=== PATIENT | female | born 1990 | race Caucasian/White ===

== ENCOUNTER 2016-12-16 13:49 | Emergency (ER) | payer OTHER ==
[~2016-12-16] VITALS: Ht 170.2 cm; Wt 111.1 kg
--- NOTE | 2016-12-16 13:55 | NUR ---
PATIENT TO OF1 AT THIS TIME.
[2016-12-16 13:57] VITALS: BP 167/81
--- NOTE | 2016-12-16 14:20 | NUR ---
Patient being evaluated by Dr. Mccollum
[2016-12-16] MEDS ORDERED: IBUPROFEN 600 MG TAB PO ONE (14:40)
[2016-12-16 15:23] VITALS: BP 167/81
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
--- NOTE | 2016-12-16 15:25 | NUR ---
Patient discharged with v/s stable. Written and verbal after care instructions given and explained. Patient alert, oriented and verbalized understanding of instructions. Ambulatory with steady gait. All questions addressed prior to discharge. ID band removed. Patient advised to follow up with PMD. Rx of NORCO AND MOTRIN given. Patient educated on indication of medication including possible reaction and side effects. Opportunity to ask questions provided and answered.
== END 2016-12-16 15:25 | disposition home or self-care (01) ==
LOC: MED 13:49
DX: S90.01XA Contusion of right ankle, initial encounter (principal); V87.8XXA Person injured in other specified noncollision transport accidents involving motor vehicle (traffic), initial encounter; Y93.89 Activity, other specified; Y92.89 Other specified places as the place of occurrence of the external cause; Y99.8 Other external cause status

== ENCOUNTER 2017-11-16 11:22 | Emergency (ER) | payer OTHER ==
[~2017-11-16] VITALS: Ht 170.2 cm; Wt 107.5 kg
[2017-11-16 11:36] VITALS: BP 136/70
--- NOTE | 2017-11-16 11:45 | NUR ---
PT AMBULATED TO [facility].
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
[2017-11-16 12:37] VITALS: BP 133/71
--- NOTE | 2017-11-16 12:37 | NUR ---
Patient discharged with v/s stable. Written and verbal after care instructions given and explained. Patient alert, oriented and verbalized understanding of instructions. Ambulatory with steady gait. All questions addressed prior to discharge. ID band removed. Patient advised to follow up with PMD. Rx of NEOSPORIN CREAM given. Patient educated on indication of medication including possible reaction and side effects. Opportunity to ask questions provided and answered.
== END 2017-11-16 12:37 | disposition home or self-care (01) ==
LOC: MED 11:22
DX: Z77.098 Contact with and (suspected) exposure to other hazardous, chiefly nonmedicinal, chemicals (principal); R51 Headache
CPT/HCPCS: 99283

== ENCOUNTER 2017-12-13 16:05 | Emergency (ER) | payer OTHER ==
[~2017-12-13] VITALS: Ht 170.2 cm; Wt 107.5 kg
[2017-12-13 16:06] VITALS: BP 133/71
[2017-12-13] MEDS: KETOROLAC 60 MG/2 ML VIAL IM ONE (16:26)
[2017-12-13 17:25] VITALS: BP 131/70
== END 2017-12-13 17:25 | disposition home or self-care (01) ==
LOC: MED 16:05
DX: S13.4XXA Sprain of ligaments of cervical spine, initial encounter (principal); V23.9XXA Unspecified motorcycle rider injured in collision with car, pick-up truck or van in traffic accident, initial encounter; Y93.89 Activity, other specified; Y92.89 Other specified places as the place of occurrence of the external cause; Y99.8 Other external cause status
CPT/HCPCS: 72050; 96372; 99284; J1885

== ENCOUNTER 2019-04-26 09:50 | Emergency (ER) | payer OTHER ==
[~2019-04-26] VITALS: Ht 170.2 cm; Wt 110.3 kg
[2019-04-26 10:00] VITALS: BP 119/64
--- NOTE | 2019-04-26 10:09 | NUR ---
Patient ambulated to bed 11. RN evaluating patient at bedside.
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
--- NOTE | 2019-04-26 10:32 | NUR ---
DR. BERRY EVALUATING PT AT BEDSIDE.
--- NOTE | 2019-04-26 10:32 | NUR ---
Dr. Ann evaluating patient at bedside.
--- NOTE | 2019-04-26 10:44 | NUR ---
Patient discharged with v/s stable. Written and verbal after care instructions given and explained. Patient alert, oriented and verbalized understanding of instructions. Ambulatory with steady gait. All questions addressed prior to discharge. ID band removed. Patient advised to follow up with PMD. Rx of Ibuprofen and Flexeril given. Patient educated on indication of medication including possible reaction and side effects. Opportunity to ask questions provided and answered.
[2019-04-26 10:45] VITALS: BP 119/64
== END 2019-04-26 10:44 | disposition home or self-care (01) ==
LOC: MED 09:50
DX: S39.012A Strain of muscle, fascia and tendon of lower back, initial encounter (principal); Z90.49 Acquired absence of other specified parts of digestive tract; Z98.890 Other specified postprocedural states; X50.9XXA Other and unspecified overexertion or strenuous movements or postures, initial encounter; Y93.89 Activity, other specified; Y92.89 Other specified places as the place of occurrence of the external cause; Y99.8 Other external cause status
CPT/HCPCS: 81025; 99283

== ENCOUNTER 2020-07-22 14:19 | Emergency (ER) | payer OTHER ==
[~2020-07-22] VITALS: Ht 170.2 cm; Wt 108.0 kg
[2020-07-22 14:24] VITALS: BP 118/99
--- NOTE | 2020-07-22 14:29 | NUR ---
30/F BIB SELF C/O PAINFUL URINATION X 3 DAYS. PMH: C SECTION, TONSILLECTOMY
--- NOTE | 2020-07-22 16:13 | NUR ---
Note salvatore in ED - 07/22/20 at 1650 by [facility] pt left without d/c paperwork. MITCHELL Del Castillo made aware.
[2020-07-22 16:20] VITALS: BP 118/99
--- NOTE | 2020-07-22 16:20 | NUR ---
Patient discharged with v/s stable. Written and verbal after care instructions given and explained. Patient alert, oriented and verbalized understanding of instructions. Ambulatory with steady gait. All questions addressed prior to discharge. ID band removed. Patient advised to follow up with PMD. Rx of DIFLUCAN & PHENAZOPYRIDINE given. Patient educated on indication of medication including possible reaction and side effects. Opportunity to ask questions provided and answered.
== END 2020-07-22 16:13 | disposition home or self-care (01) ==
LOC: MED 14:19
DX: N76.0 Acute vaginitis (principal); R30.0 Dysuria; Z90.49 Acquired absence of other specified parts of digestive tract
CPT/HCPCS: 81002; 99283

== ENCOUNTER 2020-07-25 23:11 | Emergency (ER) | payer OTHER ==
[~2020-07-25] VITALS: Ht 170.2 cm; Wt 105.7 kg
[2020-07-25 23:32] VITALS: BP 127/72
--- NOTE | 2020-07-25 23:45 | NUR ---
ERMD EVALUATING PATIENT AT [facility].
[2020-07-25] MEDS ORDERED: diphenhydrAMINE 12.5 MG/5 ML UDC PO ONE (23:55)
[2020-07-25] MEDS ORDERED: ALUMINUM HYD/MAG/SIMETHICONE 30 ML UDC PO ONE (23:55)
[2020-07-25] MEDS ORDERED: LIDOCAINE VISCOUS 2% 20 ML UDC PO ONE (23:55)
[2020-07-26 00:10] VITALS: BP 127/72
--- NOTE | 2020-07-26 00:31 | NUR ---
Patient discharged with v/s stable. Written and verbal after care instructions given and explained. Patient alert, oriented and verbalized understanding of instructions. Ambulatory with steady gait. All questions addressed prior to discharge. ID band removed. Patient advised to follow up with PMD. Rx of dipenhist, maalox given. Patient educated on indication of medication including possible reaction and side effects. Opportunity to ask questions provided and answered.
== END 2020-07-26 00:32 | disposition home or self-care (01) ==
LOC: MED 23:11
DX: K12.0 Recurrent oral aphthae (principal)
CPT/HCPCS: 99283; Q0163

== ENCOUNTER 2020-08-11 12:38 | Emergency (ER) | payer OTHER ==
[~2020-08-11] VITALS: Ht 170.2 cm; Wt 104.3 kg
[2020-08-11 12:40] VITALS: BP 150/91
--- NOTE | 2020-08-11 12:44 | NUR ---
Patient ambulated to bed 12 with steady gait.
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
[2020-08-11] MEDS ORDERED: KETOROLAC 30 MG/ML VIAL IM ONE (13:25)
[2020-08-11] MEDS ORDERED: LIDOCAINE 2% 1000 MG/50 ML VIAL INJ ONE (13:25)
[2020-08-11 14:20] VITALS: BP 150/91
--- NOTE | 2020-08-11 14:20 | NUR ---
Patient discharged with v/s stable. Written and verbal after care instructions about finger fracture given and explained. Patient alert, oriented and verbalized understanding of instructions. Ambulatory with steady gait. All questions addressed prior to discharge. ID band removed. Patient advised to follow up with PMD. Rx of NORCO, KEFLEX, IBUPROFEN given. Patient educated on indication of medication including possible reaction and side effects. Opportunity to ask questions provided and answered.
== END 2020-08-11 14:20 | disposition home or self-care (01) ==
LOC: MED 12:38
DX: S62.638B Displaced fracture of distal phalanx of other finger, initial encounter for open fracture (principal); S61.316A Laceration without foreign body of right little finger with damage to nail, initial encounter; W20.8XXA Other cause of strike by thrown, projected or falling object, initial encounter; Y93.89 Activity, other specified; Y92.89 Other specified places as the place of occurrence of the external cause; Y99.8 Other external cause status
CPT/HCPCS: 11760; 73130; 90471; 90715; 96372; 99284; J1885; J2001

== ENCOUNTER 2020-08-13 07:17 | Emergency (ER) | payer OTHER ==
[~2020-08-13] VITALS: Ht 170.2 cm; Wt 99.8 kg
[2020-08-13 07:23] VITALS: BP 131/71
--- NOTE | 2020-08-13 07:23 | NUR ---
Patient ambulated to chair A. RN evaluating patient.
--- NOTE | 2020-08-13 07:31 | NUR ---
Dr. Weinberg is evaluating the patient.
[2020-08-13] MEDS ORDERED: BACITRACIN OINT 500 UNITS/GM PKT TP ONE (07:40)
[2020-08-13 07:53] VITALS: BP 121/71
--- NOTE | 2020-08-13 07:53 | NUR ---
Patient discharged with v/s stable. Written and verbal after care instructions given and explained. Patient verbalized understanding. Ambulatory with steady gait. All questions addressed prior to discharge. Advised to follow up with PMD.
--- NOTE | 2020-08-13 07:53 | NUR ---
applied finger splint to right 5th digit without any issues
== END 2020-08-13 07:53 | disposition home or self-care (01) ==
LOC: MED 07:17
DX: S62.606D Fracture of unspecified phalanx of right little finger, subsequent encounter for fracture with routine healing (principal); X58.XXXD Exposure to other specified factors, subsequent encounter
CPT/HCPCS: 99283